=== PATIENT | male | born 1950 | race Caucasian/White ===

== ENCOUNTER → 2017-05-21 | Outpatient (CLI) | payer OTHER ==
[~2017-05-21] VITALS: Ht 152.4 cm; Wt 63.5 kg
[~2017-05-21] MED LIST: ASPIR 8181 MG; BRILINTA90 MG; COZAAR100 MG; FORTAMET1000 MG; JANUMET 50-1,01 EACH; LIPITOR40 MG
== END | disposition home or self-care (01) ==
LOC: PPHC 17:26
DX: E11.9 Type 2 diabetes mellitus without complications (principal); Z00.8 Encounter for other general examination

== ENCOUNTER → 2017-06-17 | Outpatient (CLI) | payer OTHER | END | disposition home or self-care (01) | LOC: PPHC 10:00 → NUTRICION 11:49 | DX: E11.69 Type 2 diabetes mellitus with other specified complication (principal); I10 Essential (primary) hypertension ==